=== PATIENT | female | born 1990 | race American Indian/Alaskan Native ===

== ENCOUNTER 2017-04-03 20:03 | Emergency (ER) | payer MEDICAID ==
[2017-04-03] MEDS ORDERED: Azithromycin 250 MG Tab ONE (20:10)
--- NOTE | 2017-04-04 00:51 | ER ---
HISTORY OF PRESENT ILLNESS: A 26-year-old lady here with complaints of coughing, head congestion, and chest congestion for the last 3-4 days. Her cough has been mostly dry. She feels like she has some ear pressure and some sinus pressure as well. She tells me that she has been running a low-grade fever a couple of times. OBJECTIVE: GENERAL APPEARANCE: The patient is awake and alert in no obvious distress. VITAL SIGNS: Reviewed. She is normotensive and currently afebrile. O2 sats are good at 100%. HEENT: On physical exam of ears; TMs are dull, slightly dusky. Nares are congested. The patient has mild bimaxillary sinus tenderness with palpation. Oral mucous membranes moist. Posterior pharynx shows mild drainage. Tonsils are enlarged but not injected. NECK: Supple. LUNGS: Exam reveals rhonchi in the right lower lobe without wheezes. DIAGNOSES: 1. Bronchitis. 2. Sinusitis. 3. Early stage otitis media. TREATMENT PLAN: Z-Tin will be given. The patient is on [id number] medications and taking cough medicine that is [id number]. She feels this is helping a little bit. She is to rest and push fluids. Followup is p.r.n. if her symptoms should get worse. CRS/MODL /[id number]
== END 2017-04-03 20:38 | disposition home or self-care (01) ==
LOC: LB.ED 20:03
DX: J40 Bronchitis, not specified as acute or chronic (principal); J32.9 Chronic sinusitis, unspecified; H66.90 Otitis media, unspecified, unspecified ear
CPT/HCPCS: 99283; A9270

== ENCOUNTER 2019-11-25 17:53 | Emergency (ER) | payer MEDICAID, OTHER ==
[2019-11-25] MEDS ORDERED: Ondansetron 4 MG Tab.DIS ONE (19:25)
--- NOTE | 2019-11-25 19:51 | EDM.PDOC ---
ED HPI GENERAL MEDICAL PROBLEM - General Chief Complaint: Gastrointestinal Problem Stated Complaint: NAUSEA, VOMITING, CASTILLO Time Seen by Provider: 11/25/19 19:30 Source of Information: Reports: Patient History Limitations: Reports: No Limitations - History of Present Illness INITIAL COMMENTS - FREE TEXT/NARRATIVE: Patient is a 29 y/o female who presents with nausea and diarrhea x 3 days. No fever and no exposure to anyone with COVID. 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: Social & Family History - Tobacco Use Smoking Status *Q: Never Smoker Second Hand Smoke Exposure: No - Caffeine Use Caffeine Use: Reports: Coffee, Soda - Recreational Drug Use Recreational Drug Use: No ED ROS GENERAL - Review of Systems Review Of Systems: See Below Constitutional: Reports: No Symptoms HEENT: Reports: No Symptoms Respiratory: Reports: No Symptoms Cardiovascular: Reports: No Symptoms Endocrine: Reports: No Symptoms GI/Abdominal: Reports: Diarrhea, Nausea Skin: Reports: No Symptoms ED EXAM, GI/ABD - Physical Exam Exam: See Below Exam Limited By: No Limitations General Appearance: Alert, No Apparent Distress Head: Atraumatic, Normocephalic Respiratory/Chest: No Respiratory Distress, Lungs Clear, Normal Breath Sounds, No Accessory Muscle Use, Chest Non-Tender Cardiovascular: Normal Peripheral Pulses, Regular Rate, Rhythm, No Murmur GI/Abdominal Exam: Normal Bowel Sounds, Soft, Non-Tender Neurological: Alert, Oriented Skin Exam: Warm, Dry Course - Vital Signs Last Recorded V/S: Last Vital Signs Temp 36.6 C 11/25/19 18:54 Pulse 75 11/25/19 18:54 Resp 20 11/25/19 18:54 BP 129/71 11/25/19 18:54 Pulse Ox 97 11/25/19 18:54 - Orders/Labs/Meds Orders: Active Orders 24 hr Category Date Time Status Isolation [COMM] Routine Oth 11/25/19 18:57 Active Labs: Laboratory Tests 11/25/19 11/25/19 Range/Units 18:00 19:00 SARS CoV-2 RNA Rapid ZACHARIAH Negative POC Group A Strep Rpd Negative (NEGATIVE) Departure - Departure Time of Disposition: 19:47 Disposition: Home, Self-Care 01 Condition: Good Clinical Impression: Gastroenteritis - Discharge Information *PRESCRIPTION DRUG MONITORING PROGRAM REVIEWED*: Not Applicable *COPY OF PRESCRIPTION DRUG MONITORING REPORT IN PATIENT MILIND: Not Applicable Instructions: Viral Gastroenteritis, Adult, [id number] Referrals: PCP,None [Primary Care Provider] - Forms: ED Department Discharge Additional Instructions: Drink plenty of fluids and get plenty of rest. Diet and activity as tolerated. May take provided Zofran as directed: 1 tablet dissolved under tongue every 6 hours as needed for nausea. Should symptoms worsen or persist, return for further evaluation. Call with any questions. Sepsis Event Note (ED) - Evaluation Sepsis Screening Result: No Definite Risk - Focused Exam Vital Signs: Vital Signs Temp Pulse Resp BP Pulse Ox 11/25/19 18:54 36.6 C 75 20 129/71 97 11/25/19 18:50 36.4 C 75 16 129/71 100 - My Orders Last 24 Hours: My Active Orders 11/25/19 18:57 Isolation [COMM] Routine - Assessment/Plan Last 24 Hours: My Active Orders 11/25/19 18:57 Isolation [COMM] Routine
== END 2019-11-25 19:50 | disposition home or self-care (01) ==
LOC: LB.ED 17:53
DX: K52.9 Noninfective gastroenteritis and colitis, unspecified (principal); Z20.828 Contact with and (suspected) exposure to other viral communicable diseases
CPT/HCPCS: 87430; 87635; 87804; 99284; A9270; 99283; U0002

== ENCOUNTER 2020-04-18 18:16 | Emergency (ER) | payer MEDICAID ==
[2020-04-18] MEDS ORDERED: Ketorolac 60 MG/2 ML SDV IM ONE (18:38)
--- NOTE | 2020-04-18 18:43 | EDM.PDOC ---
ED HPI GENERAL MEDICAL PROBLEM - General Chief Complaint: General Stated Complaint: shoulder pain/chest pain Time Seen by Provider: 04/18/20 18:30 Source of Information: Reports: Patient History Limitations: Reports: No Limitations - History of Present Illness INITIAL COMMENTS - FREE TEXT/NARRATIVE: patient presented to the ER with a c/o right sided chest and arm pain. she reports a fall from standing position 2 days, after she slipped on ice and landed on her right side. Didn't come to the ER at that time and decided to try some medications at home, but pain slowly got worse. no fever or chills. pain with taking a deep breath - mainly right lateral lower ribs. no nausea or emesis. 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 - Past Surgical History GI Surgical History: Reports: Cholecystectomy Female Surgical History: Reports: Section Social & Family History - Tobacco Use Tobacco Use Status *Q: Never Tobacco User Second Hand Smoke Exposure: No - Caffeine Use Caffeine Use: Reports: Soda - Recreational Drug Use Recreational Drug Use: No ED ROS GENERAL - Review of Systems Review Of Systems: See Below Constitutional: Reports: No Symptoms HEENT: Reports: No Symptoms Cardiovascular: Reports: No Symptoms GI/Abdominal: Reports: No Symptoms Skin: Reports: No Symptoms Neurological: Reports: No Symptoms Psychiatric: Reports: No Symptoms ED EXAM, GENERAL - Physical Exam Exam: See Below Exam Limited By: No Limitations General Appearance: Alert, No Apparent Distress Neck: Normal Inspection Respiratory/Chest: No Respiratory Distress, Lungs Clear, Normal Breath Sounds, Other (mild right sided chest wall tender to palpation ) Cardiovascular: Normal Peripheral Pulses GI/Abdominal: Normal Bowel Sounds Back Exam: Normal Inspection, Full Range of Motion Extremities: Normal Inspection Neurological: Alert, Oriented, Normal Cognition, No Motor/Sensory Deficits Psychiatric: Normal Affect, Normal Mood Course - Vital Signs Last Recorded V/S: Last Vital Signs Temp 37.1 C 04/18/20 18:24 Pulse 67 04/18/20 18:24 Resp 18 04/18/20 18:24 BP 121/77 04/18/20 18:24 Pulse Ox 100 04/18/20 18:24 - Orders/Labs/Meds Orders: Active Orders 24 hr Category Date Time Status Ribs 2V w Chest Rt [CR] Stat Exams 04/18/20 18:36 Taken Meds: Medications Discontinued Medications Generic Name Dose Route Start Last Admin Trade Name López PRN Reason Stop Dose Admin Ketorolac Tromethamine 60 mg 04/18/20 18:38 04/18/20 18:42 Toradol IM 04/18/20 18:39 60 mg ONETIME ONE Administration - Re-Assessments/Exams Free Text/Narrative Re-Assessment/Exam: 04/18/20 18:42 was given IM toradol for pain CXR with ribs view was ordered 04/18/20 19:06 no e/o acute rib fx on CXR. no Pnx. pain controlled after IM toradol Departure - Departure Time of Disposition: 19:07 Disposition: Home, Self-Care 01 Condition: Good Clinical Impression: Contusion of right chest wall Qualifiers: Encounter type: initial encounter Qualified Code(s): S20.211A - Contusion of right front wall of thorax, initial encounter - Discharge Information *PRESCRIPTION DRUG MONITORING PROGRAM REVIEWED*: Not Applicable *COPY OF PRESCRIPTION DRUG MONITORING REPORT IN PATIENT MILIND: Not Applicable Instructions: Contusion, [id number], Blunt Chest Trauma Forms: ED Department Discharge Sepsis Event Note (ED) - Evaluation Sepsis Screening Result: No Definite Risk - Focused Exam Vital Signs: Vital Signs Temp Pulse Resp BP Pulse Ox 04/18/20 18:24 37.1 C 67 18 121/77 100 - Problem List & Annotations (1) Contusion of right chest wall SNOMED Code(s): 89643121937669468 Code(s): S20.211A - CONTUSION OF RIGHT FRONT WALL OF THORAX, INITIAL ENCOUNTER Status: Acute Priority: Medium Current Visit: Yes Qualifiers: Encounter type: initial encounter Qualified Code(s): S20.211A - Contusion of right front wall of thorax, initial encounter - Problem List Review Problem List Initiated/Reviewed/Updated: Yes - My Orders Last 24 Hours: My Active Orders 04/18/20 18:36 Ribs 2V w Chest Rt [CR] Stat - Assessment/Plan Last 24 Hours: My Active Orders 04/18/20 18:36 Ribs 2V w Chest Rt [CR] Stat Plan: - continue with Tylenol and Ibuprofen for pain control - take Tramadol as needed per instructions - ice the affected area - increase activities slowly as tolerating - return to the ER if symptoms got worse or any concerns
[2020-04-18] MEDS ORDERED: traMADol 50 MG Tab ONE (19:00)
--- NOTE | 2020-04-19 09:50 | CR ---
Date of Service: 04/18/20 Clinical Data: fall CHEST AND RIGHT RIBS: No priors. The heart size is normal. The lungs are clear. No pneumothorax. No pleural effusions. No displaced rib fractures. No lytic or blastic bone lesions. There are surgical clips in the right upper abdomen consistent with prior cholecystectomy. [id number] MTDD
== END 2020-04-18 19:20 | disposition home or self-care (01) ==
LOC: LB.ED 18:16
DX: S20.211A Contusion of right front wall of thorax, initial encounter (principal); W00.0XXA Fall on same level due to ice and snow, initial encounter
CPT/HCPCS: 71101-RT; 96372; 99283; 99283-25; A9270-GY; J1885

== ENCOUNTER 2020-04-25 23:04 | Emergency (ER) | payer MEDICAID ==
[~2020-04-25 23:04] MED LIST: Acetaminophen/Codeine 300-30 MG Tab ONE
--- NOTE | 2020-04-25 23:27 | EDM.PDOC ---
ED HPI GENERAL MEDICAL PROBLEM - General Time Seen by Provider: 04/25/20 23:23 Source of Information: Reports: Patient - History of Present Illness INITIAL COMMENTS - FREE TEXT/NARRATIVE: Patient had a prior history of falling on ice. She was negative for Rt shoulder fx. Today she presents with increasing pain when trying to sleep. 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 (Rt shoulder pain) Musculoskeletal: Reports: Joint Pain, Muscle Pain, Muscle Stiffness ED EXAM, GENERAL - Physical Exam Exam: See Below Exam Limited By: No Limitations General Appearance: Alert, WD/WN, No Apparent Distress Eye Exam: Bilateral Eye: PERRL Ears: Normal External Exam Nose: Normal Inspection, Normal Mucosa Throat/Mouth: Normal Inspection, Normal Lips, Normal Teeth Head: Atraumatic, Normocephalic Neck: Normal Inspection, Supple, Non-Tender Respiratory/Chest: No Respiratory Distress, Lungs Clear, Normal Breath Sounds Cardiovascular: Normal Peripheral Pulses, Regular Rate, Rhythm Peripheral Pulses: 2+: Brachial (L), Brachial (R) GI/Abdominal: Normal Bowel Sounds, Soft, Non-Tender Extremities: Arm Pain, Limited Range of Motion Neurological: Alert, Oriented, CN II-XII Intact Psychiatric: Normal Affect, Normal Mood Skin Exam: Warm, Dry, Intact Lymphatic: No Adenopathy Course - Orders/Labs/Meds Orders: Active Orders 24 hr Category Date Time Status Chest 2V [CR] Stat Exams 04/25/20 23:30 Taken Labs: Laboratory Tests 04/25/20 Range/Units 23:35 Urine HCG, Qual Negative (NEGATIVE) Departure - Departure Time of Disposition: 00:15 Disposition: Home, Self-Care 01 Condition: Good Clinical Impression: Strain of right shoulder Qualifiers: Encounter type: subsequent encounter Qualified Code(s): S46.911D - Strain of unspecified muscle, fascia and tendon at shoulder and upper arm level, right arm, subsequent encounter - Discharge Information *PRESCRIPTION DRUG MONITORING PROGRAM REVIEWED*: No Additional Instructions: See PLAN. - My Orders Last 24 Hours: My Active Orders 04/25/20 23:30 Chest 2V [CR] Stat - Assessment/Plan Last 24 Hours: My Active Orders 04/25/20 23:30 Chest 2V [CR] Stat Assessment:: Muscle strain from prior fall. Plan: Follow up with PCP or Ortho for MRI evaluation if pain persists.
[2020-04-26] MEDS ORDERED: Acetaminophen/HYDROcodone 325-5 MG Tab PO ONE (00:09)
--- NOTE | 2020-04-26 07:26 | CR ---
Date of Service: 04/25/20 Clinical Data: Chest / shoulder pain PA AND LATERAL CHEST: Comparison is made to a prior exam dated 04/18/20. The heart size is normal. The lungs are clear. No pneumothorax. No pleural effusions. No evidence of acute intrathoracic disease. [id number] [facility]
== END 2020-04-26 00:25 | disposition home or self-care (01) ==
LOC: LB.ED 23:04
DX: S46.911A Strain of unspecified muscle, fascia and tendon at shoulder and upper arm level, right arm, initial encounter (principal); W00.0XXA Fall on same level due to ice and snow, initial encounter
CPT/HCPCS: 71046; 81025; 99282; 99283; A9270-GY

== ENCOUNTER 2021-01-25 14:43 | Emergency (ER) | payer MEDICAID ==
[2021-01-25 14:59] VITALS: BP 133/62; PULSE 83
--- NOTE | 2021-01-25 15:06 | EDM.PDOC ---
ED HPI GENERAL MEDICAL PROBLEM - General Chief Complaint: ENT Problem Stated Complaint: TOOTHACHE Time Seen by Provider: 01/25/21 14:59 Source of Information: Reports: Patient History Limitations: Reports: No Limitations - History of Present Illness INITIAL COMMENTS - FREE TEXT/NARRATIVE: This patient presents to the emergency department for evaluation of a toothache. She states that she broke a tooth off about 6 months ago and has not sought any dental care for this. The pain increased dramatically about 5 days ago and is increased each day since then. She states he has been using ibuprofen and Tylenol with little relief. She has contacted a dentist but states she is not able to get into 1. She is unable to state who it is that she contacted. She does not have a fever, she is drinking and eating. She denies other concerns or complaints. 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 ED EXAM, ENT - Physical Exam Exam: See Below Exam Limited By: No Limitations General Appearance: Alert, WD/WN, No Apparent Distress Eye Exam: Bilateral Eye: PERRL Ears: Normal External Exam Nose: Normal Inspection Mouth/Throat: Dental Pain, Dental Tenderness, Other (Swelling and erythema around base of tooth #32. Some tenderness with tapping on the tooth itself. No facial swelling. Full range of motion in the jaw.). No: Dental Trauma Head: Atraumatic, Normocephalic Neck: Normal Inspection Respiratory/Chest: No Respiratory Distress, No Accessory Muscle Use Skin: Warm, Dry, Intact Course - Vital Signs Last Recorded V/S: Last Vital Signs Temp 36.4 C 01/25/21 14:50 Pulse 83 01/25/21 14:50 Resp 18 01/25/21 14:50 BP 133/62 01/25/21 14:50 Pulse Ox 97 01/25/21 14:50 - Re-Assessments/Exams Free Text/Narrative Re-Assessment/Exam: This patient presents to the emergency department for evaluation of tooth pain as detailed above. Evaluation today showed some mild infection around tooth #32 which was mildly tenderness to palpation. There is no evidence of surrounding abscess. There is no evidence of deep space infection of the neck or any sepsis-like syndrome. Patient was given IM Toradol for her pain here. Given the concern for apical abscess and dental infection the she was given a prescription for penicillin. She was encouraged to continue to use ibuprofen or Tylenol as needed for pain. I discussed with the patient that these medications will not definitively treat this and that she does need definitive care by a dentist. She is aware that I am not a dentist and that we do not provide opioid pain medications for something like this. She was instructed to follow-up with her dentist next week or her primary care provider as needed. Patient was stable at the time of discharge. 01/25/21 15:14 Departure - Departure Time of Disposition: 15:05 Disposition: Home, Self-Care 01 Condition: Fair Clinical Impression: Toothache - Discharge Information *PRESCRIPTION DRUG MONITORING PROGRAM REVIEWED*: No *COPY OF PRESCRIPTION DRUG MONITORING REPORT IN PATIENT MILIND: No Prescriptions: Penicillin V Potassium [Veetids] 500 mg PO Q8H 10 Days #30 tab Instructions: Dental Pain Referrals: PCP,None [Primary Care Provider] - Forms: ED Department Discharge Sepsis Event Note (ED) - Evaluation Sepsis Screening Result: No Definite Risk - Focused Exam Vital Signs: Vital Signs Temp Pulse Resp BP Pulse Ox 01/25/21 14:50 36.4 C 83 18 133/62 97
[2021-01-25] MEDS: Ketorolac 60 MG/2 ML SDV IM ONE (15:13)
[2021-01-25] MEDS ORDERED: Ketorolac 60 MG/2 ML SDV ONE (15:23)
== END 2021-01-25 15:20 | disposition home or self-care (01) ==
LOC: LB.ED 14:43
DX: K08.89 Other specified disorders of teeth and supporting structures (principal); Z79.899 Other long term (current) drug therapy
CPT/HCPCS: 96372; 99282; J1885

== ENCOUNTER 2021-01-27 23:15 | Emergency (ER) | payer MEDICAID ==
--- NOTE | 2021-01-28 08:30 | EDM.PDOC ---
ED HPI GENERAL MEDICAL PROBLEM - General Chief Complaint: ENT Problem Stated Complaint: TOOTH ACHE Time Seen by Provider: 01/27/21 23:23 Source of Information: Reports: Patient, RN Notes Reviewed History Limitations: Reports: No Limitations - History of Present Illness INITIAL COMMENTS - FREE TEXT/NARRATIVE: This patient presents to the emergency department in the care of her mother for evaluation of tooth pain. She was seen approximately 48 hours prior to this, given Toradol and started on penicillin. She has had problems with her tooth for approximately for the last 6 months and has not sought dental care. She states the pain is gotten worse in the last 7 days. She has not seen a dentist for this. She has not had a fever, had any vomiting or diarrhea. She is drin azeem fluids but is not able to eat. She states that since she was here she was seen in [place] twice, given Toradol again and given hydrocodone. She states the hydrocodone is not working and she is requesting something stronger. She denies other concerns or complaints. 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 ED EXAM, ENT - Physical Exam Exam: See Below Exam Limited By: No Limitations General Appearance: Alert, Moderate Distress, Other (Patient is crying and writhing in pain throughout exam.) Ears: Normal External Exam Nose: Normal Inspection Mouth/Throat: Dental Tenderness, Gum Swelling, Other (Tenderness with tapping on tooth #32. Mild facial swelling, mild swelling of gingiva around 32 with some erythema noted.). No: Pharyngeal Erythema, Throat Pain, Throat Swelling Head: Atraumatic, Normocephalic Neck: Normal Inspection, Full Range of Motion, Lymphadenopathy (R) (Mild). No: Lymphadenopathy (L) Respiratory/Chest: No Respiratory Distress, Lungs Clear, Normal Breath Sounds, No Accessory Muscle Use, Other (Protecting airway) Skin: Warm, Dry, Intact Course - Vital Signs Last Recorded V/S: Last Vital Signs Temp 36.8 C 01/27/21 23:23 Pulse 97 01/27/21 23:23 Resp 18 01/27/21 23:23 BP 134/80 01/27/21 23:23 Pulse Ox 98 01/27/21 23:23 - Re-Assessments/Exams Free Text/Narrative Re-Assessment/Exam: 01/28/21 08:27 This patient presents to the emergency department for evaluation of dental pain. This is her fourth emergency department visit in the past 4 days. She is asking for pain medication stronger than hydrocodone. Examination reveals a acutely tender tooth #32. There is no evidence of surrounding abscess. There is no evidence of deep space infection of the neck or any sepsis-like syndrome. Patient and mother demanding increased pain medications. Mother states "can you just give her a shot?". I did offer to give her a shot of Toradol since; however, the patient refused this. I instructed them to go to a dentist in the morning for definitive care. I reminded them we do not have a dentist here nor [place] a dentist. The medication she is on do not provide definitive care and she will need to be seen by a dentist as soon as possible. She was instructed to seek additional medical care for fever, inability to tolerate oral fluids. Departure - Departure Time of Disposition: 23:59 Disposition: Home, Self-Care 01 Condition: Fair Clinical Impression: Dental infection - Discharge Information *PRESCRIPTION DRUG MONITORING PROGRAM REVIEWED*: No *COPY OF PRESCRIPTION DRUG MONITORING REPORT IN PATIENT MILIND: No Instructions: Dental Pain Referrals: PCP,None [Primary Care Provider] - Forms: ED Department Discharge Additional Instructions: Discharge home. Continue taking antibiotics. Ibuprofen and Tylenol for pain. Go to dentist tomorrow, do not wait till . Sepsis Event Note (ED) - Evaluation Sepsis Screening Result: No Definite Risk - Focused Exam Vital Signs: Vital Signs Temp Pulse Resp BP Pulse Ox 01/27/21 23:23 36.8 C 97 18 134/80 98 12/05/21 23:15 36.8 C 97 18 134/80 98
== END 2021-01-27 23:30 | disposition home or self-care (01) ==
LOC: LB.ED 23:15
DX: K04.7 Periapical abscess without sinus (principal)
CPT/HCPCS: 99282

== ENCOUNTER 2021-03-27 23:32 | Emergency (ER) | payer MEDICAID ==
[2021-03-28] MEDS ORDERED: Sodium Chloride 0.9% 1,000 ML IV ONE (07:59)
== END 2021-03-28 11:08 | disposition home or self-care (01) ==
LOC: LB.ED 23:32
DX: R51.9 Headache, unspecified (principal); R55 Syncope and collapse
CPT/HCPCS: 36415; 70450; 80053; 80143; 80179; 80307; 81003; 84146; 85025; 93005; 99284; A0425; A0429; J7030

== ENCOUNTER 2021-06-22 09:16 | Emergency (ER) | payer MEDICAID ==
[2021-06-22] MEDS ORDERED: Ondansetron 4 MG Tab.DIS ONE (09:30)
== END 2021-06-22 10:28 | disposition home or self-care (01) ==
LOC: LB.ED 09:16
DX: R11.2 Nausea with vomiting, unspecified (principal); Z90.49 Acquired absence of other specified parts of digestive tract; Z79.899 Other long term (current) drug therapy
CPT/HCPCS: 81025; 99284; Q0162; 99282

== ENCOUNTER 2021-07-30 11:48 | Emergency (ER) | payer MEDICAID | END 2021-07-30 12:30 | disposition home or self-care (01) | LOC: LB.ED 11:48 | DX: N39.0 Urinary tract infection, site not specified (principal); F17.210 Nicotine dependence, cigarettes, uncomplicated; Z79.899 Other long term (current) drug therapy | CPT/HCPCS: 81001; 99282; 99283 ==

== ENCOUNTER 2021-08-28 20:17 | Emergency (ER) | payer MEDICAID ==
[2021-08-28] MEDS: Phenazopyridine 100 MG Tab PO ONE (21:04)
[2021-08-28] MEDS: Nitrofurantoin Monohydrate/Macrocrystalline 100 MG Cap PO ONE (21:05)
== END 2021-08-28 21:06 | disposition home or self-care (01) ==
LOC: LB.ED 20:17
DX: N39.0 Urinary tract infection, site not specified (principal)
CPT/HCPCS: 81001; 81025; 87086; 99283; A9270-GY